=== PATIENT | male | born 1995 | race Two or more races ===

== ENCOUNTER 2020-12-14 09:59 | Inpatient (IN) | payer BC ==
[2020-12-14] MEDS ORDERED: PSEUDOEPHEDRINE HCL 60 MG TABLET PO ONE (11:04)
[2020-12-14] MEDS ORDERED: LACTATED RINGERS SOLUTION 1000 ML INFUS.BAG IV ONE (11:05)
[2020-12-14] MEDS ORDERED: DEXAMETHASONE SOD PHOSPHATE 10 MG/1 ML VIAL IVPUSH ONE (11:05)
[2020-12-14] MEDS ORDERED: ACETAMINOPHEN 1000 MG/100 ML VIAL (NON FORMULARY) IVPB ONE (11:06)
[2020-12-14] MEDS ORDERED: PSEUDOEPHEDRINE HCL 60 MG TABLET ONE (11:09)
[2020-12-14] MEDS ORDERED: DEXAMETHASONE SOD PHOSPHATE 10 MG/1 ML VIAL ONE (11:09)
[2020-12-14] MEDS ORDERED: ACETAMINOPHEN INJECTION 100 ML IVPB ONE (11:10)
[2020-12-14 12:16] LABS: BASO % 1.1 % (0-2.0); EOS % 0.1 % (0-4.5); HEMATOCRIT 39.2 % (35.4-49); HEMOGLOBIN 12.5 GM/dL (11.7-16.9); LYMPH % 74.2 % (8-40); MEAN CELL VOLUME 55.8 fl (80-96); MEAN PLT VOLUME 10.1 fl (7.5-11.1); NEUT % 19.6 % (42.8-82.8); PLATELET COUNT 160 10^3/uL (134-434); RDW 17.1 % (11.9-15.9); WHITE BLOOD COUNT 18.3 K/mm3 (4.0-10.0)
[2020-12-14 12:23] LABS: MCH 17.9 pg (25.7-33.7); RBC 7.02 M/mm3 (4.00-5.60)
[2020-12-14 12:25] LABS: ALBUMIN 3.9 g/dl (3.4-5.0); BLOOD UREA NITROGEN 4.6 mg/dL (7-18)
[2020-12-14 12:28] LABS: CREATININE 0.9 mg/dL (0.55-1.3)
[2020-12-14 12:31] LABS: ANISOCYTOSIS 2+; BILIRUBIN,TOTAL 0.4 mg/dL (0.2-1); MACROCYTOSIS 0; PLATELET ESTIMATE NORMAL; TOT PROT 7.9 g/dl (6.4-8.2)
[2020-12-14] MEDS ORDERED: CLINDAMYCIN 600MG PREMIX IVPB 600 MG/50 ML BAG IVPB ONE ×2 (13:28→13:40)
[2020-12-14] MEDS ORDERED: CEFTRIAXONE 1 GM/50 ML BAG ONE (17:26)
[2020-12-14] MEDS ORDERED: CLINDAMYCIN IVPB 300 MG in DEXTROSE 5%-WATER - 48 ML IVPB SCH (18:00)
[2020-12-14] MEDS: CEFTRIAXONE 1 GM in DEXTROSE 5%-WATER - 50 ML IVPB SCH (18:13)
[2020-12-14] MEDS: LACTATED RINGERS SOLUTION 1,000 ML/1,000 ML INFUS.BAG IV SCH (19:39)
[2020-12-15] MEDS ORDERED: PT OWN MED DRAWER 7, Y5N ONE ×3 (00:20→21:29)
[2020-12-15] MEDS: NAPROXEN 500 MG TABLET PO SCH ×3 (01:16→21:30)
[2020-12-15] MEDS: CLINDAMYCIN 300 MG PREMIX IVPB 300 MG/50 ML BAG IVPB SCH ×3 (01:59→17:37)
[2020-12-15 02:57] VITALS: BMI 33.7
[2020-12-15] MEDS ORDERED: cefTRIAXone SODIUM 1 GM VIAL ONE (09:04)
[2020-12-15] MEDS ORDERED: DEXTROSE 5%-WATER - 50 ML IVPB ONE (09:05)
[2020-12-15] MEDS: CEFTRIAXONE 1 GM in DEXTROSE 5%-WATER - 50 ML IVPB SCH (09:18)
[2020-12-15] MEDS: ENOXAPARIN NA (PORCINE) 40 MG/0.4 ML DISP.SYRIN SQ SCH (09:18)
[2020-12-15 09:38] LABS: BASO % 1.3 % (0-2.0); HEMATOCRIT 37.2 % (35.4-49); MCHC 32.3 g/dl (32.0-35.9); MEAN CELL VOLUME 55.8 fl (80-96); MEAN PLT VOLUME 9.2 fl (7.5-11.1); MONO % 8.2 % (3.8-10.2); NEUT % 32.5 % (42.8-82.8); PLATELET COUNT 163 10^3/uL (134-434); RBC 6.67 M/mm3 (4.00-5.60); RDW 17.3 % (11.9-15.9); WHITE BLOOD COUNT 16.9 K/mm3 (4.0-10.0)
[2020-12-15 10:02] LABS: BLOOD UREA NITROGEN 6.8 mg/dL (7-18)
[2020-12-15 10:04] LABS: ALBUMIN 3.9 g/dl (3.4-5.0); CALCIUM 8.9 mg/dL (8.5-10.1)
[2020-12-15 10:07] LABS: CREATININE 0.7 mg/dL (0.55-1.3)
[2020-12-15 10:08] LABS: TOT PROT 7.5 g/dl (6.4-8.2)
[2020-12-15 10:11] LABS: BILIRUBIN,TOTAL 0.4 mg/dL (0.2-1)
[2020-12-15 11:43] LABS: ANISOCYTOSIS 0; HELMET CELLS 0; HOWELL-JOLLY BODIES 0; MACROCYTOSIS 0; OVALOCYTE 0; PLATELET ESTIMATE DECREASED; ROULEAU 0; SICKELED CELLS 0; TARGET CELLS 0; TEAR DROP CELLS 0; TOXIC GRANULATION 0
[2020-12-15] MEDS: LACTATED RINGERS SOLUTION 1,000 ML/1,000 ML INFUS.BAG IV SCH (17:38)
[2020-12-15 20:08] LABS: SARS-CoV-2 NAA Not Detected (Not Detected)
[2020-12-16] MEDS: CLINDAMYCIN 300 MG PREMIX IVPB 300 MG/50 ML BAG IVPB SCH ×2 (01:45→10:08)
[2020-12-16 04:36] VITALS: TEMP 98.5
[2020-12-16 08:42] LABS: EOS % 0.8 % (0-4.5); HEMATOCRIT 36.9 % (35.4-49); HEMOGLOBIN 11.7 GM/dL (11.7-16.9); LYMPH % 70.2 % (8-40); MCHC 31.9 g/dl (32.0-35.9); MEAN CELL VOLUME 55.6 fl (80-96); MEAN PLT VOLUME 9.2 fl (7.5-11.1); MONO % 7.9 % (3.8-10.2); NEUT % 20.1 % (42.8-82.8); PLATELET COUNT 175 10^3/uL (134-434); RBC 6.63 M/mm3 (4.00-5.60); RDW 17.2 % (11.9-15.9); WHITE BLOOD COUNT 14.2 K/mm3 (4.0-10.0)
[2020-12-16 08:51] LABS: MCH 17.7 pg (25.7-33.7)
[2020-12-16 09:02] LABS: CALCIUM 8.4 mg/dL (8.5-10.1)
[2020-12-16 09:03] LABS: BLOOD UREA NITROGEN 9.9 mg/dL (7-18)
[2020-12-16 09:06] LABS: CREATININE 0.8 mg/dL (0.55-1.3)
[2020-12-16] MEDS ORDERED: DEXTROSE 5%-WATER - 50 ML IVPB ONE (09:10)
[2020-12-16] MEDS ORDERED: cefTRIAXone SODIUM 1 GM VIAL ONE (09:10)
[2020-12-16] MEDS ORDERED: PT OWN MED DRAWER 7, Y5N ONE ×2 (09:10→10:06)
[2020-12-16] MEDS: CEFTRIAXONE 1 GM in DEXTROSE 5%-WATER - 50 ML IVPB SCH (09:14)
[2020-12-16] MEDS: NAPROXEN 500 MG TABLET PO SCH (09:15)
[2020-12-16] MEDS: ENOXAPARIN NA (PORCINE) 40 MG/0.4 ML DISP.SYRIN SQ SCH (09:17)
[2020-12-16 09:32] LABS: ALBUMIN 3.4 g/dl (3.4-5.0)
[2020-12-16 09:35] LABS: BILIRUBIN,DIRECT 0.2 mg/dL (0.0-0.2)
[2020-12-16 09:37] LABS: BILIRUBIN,TOTAL 0.4 mg/dL (0.2-1); TOT PROT 6.6 g/dl (6.4-8.2)
[2020-12-16 11:19] VITALS: BP 111/71; PULSE 92
[2020-12-16 11:29] LABS: ANISOCYTOSIS 2+; MACROCYTOSIS 0; PLATELET ESTIMATE NORMAL; TARGET CELLS 1+
[2020-12-17 14:11] LABS: HEP B CORE AB, TOT Negative (Negative)
== END 2020-12-16 12:11 | disposition home or self-care (01) | DRG 153 ==
LOC: JER 09:59 → JERBED 13:30 → J6S 22:48
PROVIDERS: ADMIT Internal Medicine; ATTEND Internal Medicine
DX: J03.90 Acute tonsillitis, unspecified (principal); D56.8 Other thalassemias; R74.01 Elevation of levels of liver transaminase levels; D72.820 Lymphocytosis (symptomatic)
CPT/HCPCS: 36415; 70480-TC; 70486-TC; 71045-TC-FY; 76705-TC; 80048; 80053; 80076; 80307; 82977; 83605; 83615; 85025; 86308; 86644; 86645; 86704; 86706; 86707; 86708; 86709; 86777; 86778; 87040; 87070; 87340; 87799; 87804; 87880; 93005; 93010; 99285-25; C9803; J1100; U0003; U0005